=== PATIENT | female | born 1995 | race Caucasian/White ===

== ENCOUNTER 2025-05-24 07:54 | Emergency (ER) | payer OTHER, SELFPAY ==
[2025-05-24 07:56] VITALS: BP 184/91; PULSE 130; RESP 22; TEMP 37.2; O2SAT 99; BMI 32.8
--- NOTE | 2025-05-24 08:40 | US_ITS ---
PROCEDURE: TRANSVAGINAL W/PREG US 05/24/2025 REASON FOR EXAM: VAGINAL BLEEDING TECHNIQUE: Procedure Code: USTVAGP Modality: US Procedure: TRANSVAGINAL W/PREG US COMPARISON: None FINDINGS Number: 1 Position: Breech Placental Position: Posterior and left lateral not low-lying. Placental Abnormalities: Small placental Dunne along its superior margin. ESTIMATED GESTATIONAL AGE: Baseline: 16 weeks and 6 days ESTIMATED DATE OF DELIVERY: Baseline: November 02, 2025. Cardiac Motion: 148 beats per minute (average) Trunk and Limb Motion: Present. MATERNAL ANATOMY: Adnexa: Neither maternal ovary is successfully identified. Cervical Length (if measured): 3.8 cm. Small amount of fluid is seen within the internal os. US/Transvaginal w/Preg US IMPRESSION: Small amount of fluid seen within the cervix. Reading Location: [place] [id number]
--- NOTE | 2025-05-24 08:58 | ED.VIS.FEGU ---
HPI HPI - Female History of Present Illness Chief Complaint: Vag Bld, Preg Narrative Narrative: Chief complaint and HPI: 30-year-old female who is G1, P0 and almost 17 weeks presents for evaluation of vaginal bleeding . Patient states that she had her HAND COLLATOR appointment this morning and while riding in the car she had vaginal bleeding that soaked through her pants. She states when she got to the HAND COLLATOR office they refused to see her and told her to come to the emergency department. She denies any vaginal pain. She denies any fever, chills, shortness of breath, chest pain, nausea, vomiting, dysuria, vaginal discharge. She states that she is AB+. This is an IVF . Review of systems: See HPI Medications: As listed on the chart Allergies: As listed on the chart PFSH: Per chart Vital signs: As listed on the chart. Reviewed. Physical exam: Gen: A&O x3, NAD Head: Normocephalic, atraumatic Eyes: No sclera icterus, conjunctiva clear ENT: Moist mucous membranes Neck: Trachea midline, No JVD CV: Tachycardic, regular rhythm, no murmurs, no peripheral edema Resp: Lungs CTA BL, no w/r/c GI: Abd soft, non-distended, non-tender, no r/r/g Pelvic: Normal external genitalia. No lesions, masses, or rashes appreciated. Blood pooling in the vaginal vault. Once blood was removed, patient has minimal vaginal bleeding from the cervix. Cervical os is closed. Cervix is non-friable. No vaginal discharge. Musc: Full ROM, no deformity Skin: Warm, dry Neuro: Alert, oriented, grossly intact, sensation intact Psych: Cooperative, appropriate mood and affect [facility] Home Medications ?Medication ?Instructions ?Recorded ?Last Taken ?Type clindamycin HCl 300 mg capsule 300 mg PO Q6H ##40 11/14/15 Unknown Rx (Cleocin HCl) Allergy/AdvReac Type Severity Reaction Status Date / Time Penicillins Allergy Rash Verified 05/24/25 07:55 Social History Smoking Status: Never smoker EXAM Physical Exam Const Vital Signs: 05/24/25 07:56 05/24/25 10:24 Temperature 98.9 F Temperature Source Oral Pulse Rate 130 H 94 Respiratory Rate 22 H 16 Blood Pressure 184/91 H 128/81 H Blood Pressure Mean 122 96 Pulse Ox 99 98 Oxygen Delivery Method Room Air Room Air MDM MDM MDM Narrative Medical decision making narrative: 30-year-old female who is G1, P0 and almost 17 weeks presents for evaluation of vaginal bleeding . Patient states that she had her HAND COLLATOR appointment this morning and while riding in the car she had vaginal bleeding that soaked through her pants. She states when she got to the HAND COLLATOR office they refused to see her and told her to come to the emergency department. Patient states she follows with Dr. Zuluaga. She denies any abdominal cramping. States she is AB+. Differential diagnosis includes but is not limited to threatened , incomplete , complete , placenta previa, UTI, anemia, dehydration. NS bolus ordered. Will obtain heart tones. Laboratory workup ordered including vaginal ultrasound. heart tones 130. CBC without leukocytosis or anemia. Platelets unremarkable. BMP unremarkable. UA negative for UTI. No bacteria. Patient does have blood in the urine likely from the vaginal bleeding. She is AB+ therefore she does not need RhoGAM. Ultrasound shows that the position is breech. Placenta position is posterior and left lateral not low-lying. There is a small placental simon along its superior margin. Small amount of fluid seen within the cervix. I spoke with Dr. Zuluaga who is the patient's HAND COLLATOR. Patient was discussed as well as findings. Plan is for her to follow-up in the office. She states that she has an appointment for high risk and therefore she is to call the office when she leaves here to possibly get an appointment later today. Patient was updated on the results and confirmed understanding of plan. Patient stable to discharge home. Impression: 1. Vaginal bleeding in second trimester 2. Small placental simon Lab Data Labs: Laboratory Results - last 24 hr 05/24/25 09:06 WBC 9.5 RBC 4.13 L Hgb 13.6 Hct 39.0 MCV 94.4 MCH 32.9 H MCHC 34.9 RDW Std Deviation 43.4 RDW Coeff of Edgar 12.5 Plt Count 288 MPV 9.6 Immature Gran % (Auto) 0.400 Neut % (Auto) 76.2 H Lymph % (Auto) 16.2 L [place] % (Auto) 6.1 Eos % (Auto) 0.7 Baso % (Auto) 0.4 Absolute Neuts (auto) 7.2 Absolute Lymphs (auto) 1.54 Nucleated RBC % 0 Sodium 139 Potassium 4.0 Chloride 104 Carbon Dioxide 22.6 Anion Gap 12 BUN 7 Creatinine 0.51 L Estim Creat Clear Calc 194.60 Est GFR (MDRD) Non-Af 130 BUN/Creatinine Ratio 14.2 Glucose 103 H Calcium 9.3 Urine Color Yellow Urine Clarity Clear Urine pH 7.0 Ur Specific [place] 1.005 Urine Protein 15 H Urine Glucose (UA) Normal Urine Ketones Negative Urine Occult Blood 250 H Urine Nitrite Negative Urine Bilirubin Negative Urine Urobilinogen Normal Ur Leukocyte Esterase Negative Urine RBC 0 SEEN Urine WBC 5-10 SEEN Ur Squamous Epith Cells 0-5 SEEN Urine Bacteria 0 SEEN Hyaline Casts 0-5 SEEN Urine Mucus 0 SEEN Blood Type AB POSITIVE Radiography Diagnostic Testing: Clinical Impression(s) from Imaging Studies Obstetrics Ultrasound 05/24/25 08:40 IMPRESSION: Small amount of fluid seen within the cervix. Reading Location: [place] [address] Discharge Plan Triage Chief Complaint: Vag Bld, Preg ED Provider: Micheal Rosario Dx/Rx/DC Orders Prescriptions: No Action clindamycin HCl [Cleocin HCl] 300 MG capsule 300 mg PO Q6H Qty: 40 0RF Primary Care Provider: CARINA SHAY Referrals: Aubrey Mckenna MD [Non-Staff] - Print Language: [place]
[2025-05-24] MEDS: 0.9% Normal Saline (1000mL) 1,000 ML 999 ML IV (09:24)
[2025-05-24 09:31] LABS: Hematocrit 39.0 % (37-47); Hemoglobin 13.6 g/dL (12.0-15.0); Immature Granulocytes Count 0.040 X10^3/uL (0.0-0.0); Mean Corp Hgb Conc 34.9 g/dL (32-36); Mean Corpuscular Volume 94.4 fL (81-99); Mean Platelet Vol. 9.6 fl (6.2-12.0); NRBC Flagged by Analyzer 0 % (0-5); Platelet Count 288 K/mm3 (150-450); RBC Distribution Width CV 12.5 % (11.6-14.6); RBC Distribution Width SD 43.4 fl (35.1-43.9); Red Blood Count 4.13 M/mm3 (4.2-5.4); White Blood Count 9.5 K/mm3 (4.4-11.0)
[2025-05-24 09:34] LABS: Mucous, Urine 0 SEEN /hpf (<or=2+); Red Blood Cells-Urine 0 SEEN /hpf (0-5)
[2025-05-24 09:36] LABS: Color, Urine Yellow (Yellow); Glucose, Dipstick Normal (Normal); Ketone-Dipstick Negative (Negative); Leukocyte Esterase-Dipstick Negative /ul (Negative); Nitrite-Dipstick Negative (Negative); Occult Blood-Urine 250 /ul (Negative); Protein-Dipstick 15 mg/dl (Negative); Specific Gravity, Urine 1.005 (1.002-1.030); Urine Bilirubin Dipstick Negative (Negative)
[2025-05-24 10:02] LABS: Anion Gap 12 (5-15); BUN 7 mg/dL (4-19); BUN/Creat Ratio 14.2 RATIO (10-20); Calcium,Total 9.3 mg/dL (7.6-11.0); Carbon Dioxide 22.6 mmol/L (21.0-32.0); Chloride 104 mmol/L (98-108); Estimated Creatinine Clearance 194.60 ml/min (50-250); Glucose 103 mg/dL (70-99); Potassium 4.0 mmol/L (3.3-5.1)
[2025-05-24 10:07] LABS: Squamous Epithelial Cells - UA 0-5 SEEN /hpf (5-10)
[2025-05-24 10:24] VITALS: BP 128/81; PULSE 94; RESP 16; O2SAT 98
[2025-05-24 11:01] VITALS: BP 128/81; PULSE 94; RESP 16; TEMP 36.7; O2SAT 98
== END 2025-05-24 11:05 | disposition home or self-care (01) ==
PROVIDERS: Emergency Provider Surgery; Visit Provider Surgery
DX: O20.9 Hemorrhage in early pregnancy, unspecified (principal); O32.1XX0 Maternal care for breech presentation, not applicable or unspecified; O43.892 Other placental disorders, second trimester; Z3A.17 17 weeks gestation of pregnancy
CPT/HCPCS: 76817; 80048; 81001; 85025; 86900; 86901; 96360; 99284; A4216